=== PATIENT | male | born 1990 | race Caucasian/White ===

== ENCOUNTER 2021-06-14 20:03 | Emergency (ER) | payer BC ==
[2021-06-14] MEDS ORDERED: methylPREDNISolone Sodium Succinate 125 MG/2 ML SDV IM ONE (22:25)
[2021-06-14] MEDS ORDERED: Albuterol/Ipratropium 3.0-0.5 MG/3 ML Neb Soln NEB ONE (22:25)
--- NOTE | 2021-06-14 23:28 | EDM.PDOC ---
ED HPI GENERAL MEDICAL PROBLEM - General Chief Complaint: Respiratory Problem Stated Complaint: SOB, COUGH, ALL OVER FATIGUE Time Seen by Provider: 06/14/21 21:30 Source of Information: Reports: Patient History Limitations: Reports: No Limitations - History of Present Illness INITIAL COMMENTS - FREE TEXT/NARRATIVE: 10-year-old male presenting to the ED for evaluation of increasing shortness of breath and cough. The patient smokes a half a pack of cigarettes a day. He has had a headache, body aches, fever and chills, wheezing and coughing over the last 4 days. There has had difficulty sleeping because of his cough. He has also had kind of generalized stamina issues due to the shortness of breath. - Related Data Allergies Allergy/AdvReac Type Severity Reaction Status Date / Time No Known Allergies Allergy Verified 06/14/21 20:43 Home Meds: Home Meds NK [No Known Home Meds] 06/14/21 [History] Past Medical History HEENT History: Reports: Impaired Vision Musculoskeletal History: Reports: Fracture Psychiatric History: Reports: Anxiety - Infectious Disease History Infectious Disease History: Reports: Chicken Pox Social & Family History - Tobacco Use Tobacco Use Status *Q: Current Every Day Tobacco User Years of Tobacco use: 6 Packs/Tins Daily: 0.4 - Caffeine Use Caffeine Use: Reports: Coffee, Soda - Recreational Drug Use Recreational Drug Use: Yes Drug Use in Last 12 Months: No Recreational Drug Type: Reports: Marijuana/Hashish Recreational Drug Use Frequency: Not Used In Over 6 Months ED ROS GENERAL - Review of Systems Review Of Systems: See Below Constitutional: Reports: Fever, Chills, Malaise, Weakness, Fatigue HEENT: Reports: Rhinitis Respiratory: Reports: Shortness of Breath, Cough Cardiovascular: Reports: No Symptoms Endocrine: Reports: Fatigue GI/Abdominal: Reports: No Symptoms : Reports: No Symptoms Musculoskeletal: Reports: No Symptoms Skin: Reports: No Symptoms Neurological: Reports: No Symptoms Psychiatric: Reports: Anxiety Hematologic/Lymphatic: Reports: No Symptoms Immunologic: Reports: No Symptoms ED EXAM, GENERAL - Physical Exam Exam: See Below Exam Limited By: No Limitations General Appearance: Alert, Anxious, Moderate Distress Eye Exam: Bilateral Eye: EOMI Throat/Mouth: Normal Inspection, Normal Oropharynx, Normal Voice, No Airway Compromise Head: Atraumatic, Normocephalic Neck: Normal Inspection, Supple, Non-Tender, Full Range of Motion Respiratory/Chest: No Respiratory Distress, No Accessory Muscle Use, Decreased Breath Sounds (Mild to moderate decrease in breath sounds bilaterally), Wheezing (Significant inspiratory and expiratory wheezes bilaterally). No: Retractions Cardiovascular: Normal Peripheral Pulses, Regular Rate, Rhythm, No Murmur Peripheral Pulses: 2+: Radial (L), Radial (R) GI/Abdominal: Normal Bowel Sounds, Soft, Non-Tender Extremities: Normal Inspection Neurological: Alert, Oriented, Normal Cognition, No Motor/Sensory Deficits Psychiatric: Normal Affect, Normal Mood Skin Exam: Warm, Dry Course - Vital Signs Last Recorded V/S: Last Vital Signs Temp 36.5 C 06/14/21 20:51 Pulse 95 06/14/21 20:51 Resp 22 H 06/14/21 20:51 BP 152/90 H 06/14/21 20:51 Pulse Ox 96 06/14/21 20:51 - Orders/Labs/Meds Orders: Active Orders 24 hr Category Date Time Status RT Aerosol Therapy [RC] ASDIRECTED Care 06/14/21 22:25 Active Chest 2V [CR] Stat Exams 06/14/21 22:26 Taken Labs: Laboratory Tests 06/14/21 06/14/21 06/14/21 Range/Units 21:31 21:44 21:44 WBC 17.8 H (4.5-11.0) K/uL RBC 5.28 (4.30-5.90) M/uL Hgb 15.9 H (12.0-15.0) g/dL Hct 47.3 (40.0-54.0) % MCV 90 (80-98) fL MCH 30 (27-31) pg MCHC 34 (32-36) % Plt Count 304 (150-400) K/uL Neut % (Auto) 78.6 H (36-66) % Lymph % (Auto) 11.4 L (24-44) % [place] % (Auto) 7.5 H (2-6) % Eos % (Auto) 2.2 (2-4) % Baso % (Auto) 0.3 (0-1) % Sodium 137 L (140-148) mmol/L Potassium 4.4 (3.6-5.2) mmol/L Chloride 100 (100-108) mmol/L Carbon Dioxide 24 (21-32) mmol/L Anion Gap 17.4 H (5.0-14.0) mmol/L BUN 10 (7-18) mg/dL Creatinine 0.8 (0.8-1.3) mg/dL Est Cr Clr Drug Dosing 118.52 mL/min Estimated GFR (MDRD) > 60 (>60) Glucose 90 (74-106) mg/dL Calcium 9.7 (8.5-10.1) mg/dL Total Bilirubin 0.4 (0.2-1.0) mg/dL AST 30 (15-37) U/L ALT 85 H (12-78) U/L Alkaline Phosphatase 90 (46-116) U/L C-Reactive Protein 5.30 H (0.0-0.3) mg/dL Total Protein 7.5 (6.4-8.2) g/dL Albumin 3.9 (3.4-5.0) g/dL Globulin 3.6 H (2.3-3.5) g/dL Albumin/Globulin Ratio 1.1 L (1.2-2.2) SARS CoV-2 RNA Rapid RADHA Negative Meds: Medications Discontinued Medications Generic Name Dose Route Start Last Admin Trade Name Freq PRN Reason Stop Dose Admin Albuterol/Ipratropium 3 ml 06/14/21 22:25 06/14/21 22:33 Albuterol/Ipratropium 3.0-0.5 Mg/3 Ml Neb Soln NEB 06/14/21 22:26 3 ml ONETIME ONE Administration Methylprednisolone Sodium Succinate 125 mg 06/14/21 22:25 06/14/21 22:33 Methylprednisolone Sodium Succinate 125 Mg/2 Ml Sdv IM 06/14/21 22:26 125 mg ONETIME ONE Administration - Radiology Interpretation Free Text/Narrative:: I reviewed the two-view chest x-ray demonstrating bilateral scattered infiltrates worrisome for an acute bronchopneumonia. There is no significant consolidation. - Re-Assessments/Exams Free Text/Narrative Re-Assessment/Exam: 06/14/21 23:27 chest x-ray shows scattered bilateral infiltrates but no significant consolidation. There is prominent bronchial markings worrisome for a bronchial pneumonia. The patient also has a significant leukocytosis at 17.8 with a left shift. His hemoglobin is 15.9 with a hematocrit of 47.3 and a platelet count of 304,000. His basic metabolic profile is unremarkable. His C- reactive protein is elevated at 5.3. The patient is COVID-19 negative. We will start him with Solu-Medrol 125 mg IM and a DuoNeb in the ED. If he responds to this, I will likely treat his bronchopneumonia with azithromycin Z-Ketan, continue with an albuterol inhaler for shortness of breath, and prednisone 10- day taper. Indications to return to the ED were discussed and the patient was discharged in satisfactory condition. Departure - Departure Time of Disposition: 23:28 Disposition: Home, Self-Care 01 Clinical Impression: Acute bronchopneumonia - Discharge Information Instructions: Community-Acquired Pneumonia, Adult Referrals: Mohamud Perdomo MD [Primary Care Provider] - Care Plan Goals: Your work-up is shown that you have a infection involving the airways and lung tissue called bronchopneumonia. We are going to put you on an antibiotic called azithromycin which you will take 2 tablets today and then 1 tablet a day for the next 4 days. I also have sent a prescription for an albuterol inhaler to use for your wheezing and shortness of breath. You should really consider quitting smoking. Do not consider vaping is is actually can cause more damage to your lung than smoking. Your COVID-19 test today was negative. Sepsis Event Note (ED) - Evaluation Sepsis Screening Result: No Definite Risk - Focused Exam Vital Signs: Vital Signs Temp Pulse Resp BP Pulse Ox 06/14/21 20:51 36.5 C 95 22 H 152/90 H 96 06/14/21 20:28 36.5 C 95 22 H 152/90 H 96 - Problem List & Annotations (1) Acute bronchopneumonia SNOMED Code(s): 357792956 Code(s): J18.0 - BRONCHOPNEUMONIA, UNSPECIFIED ORGANISM Status: Acute Priority: Medium Current Visit: Yes - Problem List Review Problem List Initiated/Reviewed/Updated: Yes - My Orders Last 24 Hours: My Active Orders 06/14/21 22:25 RT Aerosol Therapy [RC] ASDIRECTED 06/14/21 22:26 Chest 2V [CR] Stat - Assessment/Plan Last 24 Hours: My Active Orders 06/14/21 22:25 RT Aerosol Therapy [RC] ASDIRECTED 06/14/21 22:26 Chest 2V [CR] Stat
--- NOTE | 2021-06-17 09:42 | CR ---
CHEST: 2 view CLINICAL HISTORY:Dyspnea COMPARISON:None FINDINGS: Heart size and pulmonary vascularity are normal. There are diffuse bilateral pulmonary infiltrates. There are no effusions. Impression: Diffuse bilateral pulmonary infiltrates suggest pneumonitis.
== END 2021-06-14 23:39 | disposition home or self-care (01) ==
LOC: JP.ED 20:03
DX: J18.0 Bronchopneumonia, unspecified organism (principal); F17.210 Nicotine dependence, cigarettes, uncomplicated; Z20.822 Contact with and (suspected) exposure to COVID-19
CPT/HCPCS: 36415; 71046; 80053; 85025; 86140; 87635; 94640; 99285; J2930; J7620-GY; U0002

== ENCOUNTER 2021-10-07 05:24 | Emergency (ER) | payer BC ==
[2021-10-07 07:31] LABS: CORONAVIRUS COVID-19 NAA NEGATIVE (NEGATIVE)
== END 2021-10-07 08:56 | disposition other institution (70) ==
LOC: JP.ED 05:24
DX: F10.10 Alcohol abuse, uncomplicated (principal); F17.210 Nicotine dependence, cigarettes, uncomplicated; Z79.899 Other long term (current) drug therapy; Z20.822 Contact with and (suspected) exposure to COVID-19
CPT/HCPCS: 0241U; 36415; 71045; 80053; 80305; 80307; 85025; 99283

== ENCOUNTER 2025-04-06 18:31 | Emergency (ER) | payer BC ==
[2025-04-06] MEDS: Diphtheria,Pertussis(Acell),Tetanus Vaccine 0.5 ML Syringe IM ONE (19:04)
[2025-04-06] MEDS: Bacitracin Oint 1 GM U/D Packet TOP ONE (19:59)
== END 2025-04-06 20:03 | disposition home or self-care (01) ==
LOC: JP.ED 18:31
DX: S81.842A Puncture wound with foreign body, left lower leg, initial encounter (principal); F17.210 Nicotine dependence, cigarettes, uncomplicated; W45.0XXA Nail entering through skin, initial encounter; Y93.89 Activity, other specified
CPT/HCPCS: 73590; 90471; 90715; 99283; A9270; 99282